=== PATIENT | female | born 1945 | race Caucasian/White ===

== ENCOUNTER 2020-12-30 12:27 | Inpatient (IN) | payer MEDICARE ==
[~2020-12-30] VITALS: Ht 154.9 cm; Wt 65.8 kg
[2020-12-30 13:39] LABS: BASOPHIL 0.2 % (0-2); EOSINOPHIL 0.5 % (0-7); HCT 39.6 % (37.0-47.0); HGB 12.7 g/dl (12.5-16.0); LYMPHOCYTE 11.9 % (15-48); MCH 27.7 pg (25.0-31.0); MCHC 32.1 g/dL (32.0-36.0); MCV 86.3 fL (78.0-100.0); MONOCYTE 7.7 % (0-12); MPV 9.4 fL (6.0-9.5); NEUTROPHIL 79.2 % (41-80); NRBC 0; PLT 257 K/uL (150-400); RBC 4.59 M/uL (4.20-5.40); RDW 13.6 % (11.5-14.0); WBC 6.2 K/uL (4.0-10.5)
[2020-12-30 13:43] LABS: INR 0.91 (0.9-1.2); PROTHROMBIN TIME 11.7 SECONDS (11.8-13.4)
[2020-12-30 13:51] LABS: BILIRUBIN - TOTAL 0.4 mg/dL (0.2-1.0); BUN/CREAT RATIO (CALC) 27.5 RATIO; CREATININE 0.4 mg/dL (0.51-0.95); GLOBULIN (CALCULATION) 4.6 g/dL; POTASSIUM 3.5 mmol/L (3.5-5.1); TOTAL PROTEIN 7.6 g/dL (6.4-8.2)
[2020-12-30 13:56] LABS: PRO-BNP 275 pg/mL (<125)
[2020-12-30] MEDS ORDERED: ASPIRIN EC81 MG PO (22:40)
[2020-12-30] MEDS ORDERED: ATORVASTATIN CA40 MG PO (22:44)
[2020-12-30] MEDS ORDERED: CALAN SR180 MG PO (22:46)
[2020-12-30] MEDS ORDERED: GLIPIZIDE ER10 MG PO (22:47)
[2020-12-30] MEDS ORDERED: HCTZ25 MG PO (22:47)
[2020-12-30] MEDS ORDERED: TRADJENTA5 MG PO (22:49)
[2020-12-30] MEDS ORDERED: SYMBICORT 16010.2 GM PO (22:50)
[2020-12-30] MEDS ORDERED: LISINOPRIL40 MG PO (22:51)
[2020-12-30] MEDS ORDERED: METFORMIN HCL1000 MG PO (22:52)
[2020-12-30] MEDS ORDERED: MAGNESIUM PO (22:54)
[2020-12-30] MEDS ORDERED: COD LIVER OIL1 EACH PO (22:54)
[2020-12-30] MEDS ORDERED: SELENIUM200 MC1 PO (22:55)
[2020-12-30] MEDS ORDERED: CHROMIUM PICO200 MC1 PO (22:56)
[2020-12-31 04:07] LABS: BASOPHIL 0.3 % (0-2); EOSINOPHIL 0 % (0-7); LYMPHOCYTE 9.5 % (15-48); MCH 27.6 pg (25.0-31.0); MCHC 31.6 g/dL (32.0-36.0); MCV 87.4 fL (78.0-100.0); MONOCYTE 3.6 % (0-12); NRBC 0; PLT 213 K/uL (150-400); RBC 4.35 M/uL (4.20-5.40); RDW 13.4 % (11.5-14.0); WBC 3.4 K/uL (4.0-10.5)
[2020-12-31 04:08] LABS: NEUTROPHIL 86.6 % (41-80)
[2020-12-31 04:30] LABS: ALBUMIN 2.7 g/dL (3.4-5.0); BILIRUBIN - TOTAL 0.4 mg/dL (0.2-1.0); CREATININE 0.42 mg/dL (0.51-0.95); GLOBULIN (CALCULATION) 4.3 g/dL; POTASSIUM 3.9 mmol/L (3.5-5.1)
[2020-12-31 10:09] LABS: LACTIC ACID 1.3 mmol/L (0.4-1.9)
[2021-01-01 06:11] LABS: BASOPHIL 0.1 % (0-2); EOSINOPHIL 0 % (0-7); HCT 36.5 % (37.0-47.0); HGB 11.5 g/dl (12.5-16.0); MCH 27.6 pg (25.0-31.0); MCHC 31.5 g/dL (32.0-36.0); MCV 87.5 fL (78.0-100.0); MONOCYTE 8.5 % (0-12); MPV 9.1 fL (6.0-9.5); NEUTROPHIL 81.7 % (41-80); NRBC 0; PLT 281 K/uL (150-400); RBC 4.17 M/uL (4.20-5.40); RDW 13.2 % (11.5-14.0); WBC 6.7 K/uL (4.0-10.5)
[2021-01-01 06:34] LABS: ALBUMIN 2.5 g/dL (3.4-5.0); BILIRUBIN - TOTAL 0.3 mg/dL (0.2-1.0); BUN/CREAT RATIO (CALC) 39.5 RATIO; CREATININE 0.43 mg/dL (0.51-0.95); GLOBULIN (CALCULATION) 4.1 g/dL; TOTAL PROTEIN 6.6 g/dL (6.4-8.2)
[2021-01-02 01:37] LABS: BILIRUBIN NEGATIVE (NEGATIVE); BLOOD NEGATIVE Ery/uL (NEGATIVE); CLARITY CLEAR (CLEAR); COLOR YELLOW (YELLOW); GLUCOSE (U) 3+ mg/dL (NORMAL); LEUKOCYTES NEGATIVE Leu/uL (NEGATIVE); NITRITE NEGATIVE (NEGATIVE); PROTEIN NEGATIVE (NEGATIVE)
[2021-01-02 01:43] LABS: AMORPHOUS URATES CRYSTALS TRACE; BACTERIA TRACE; SQUAMOUS EPITHELIAL CELLS RARE
[2021-01-02 06:58] LABS: BASOPHIL 0.1 % (0-2); EOSINOPHIL 0 % (0-7); HCT 36.4 % (37.0-47.0); HGB 11.7 g/dl (12.5-16.0); LYMPHOCYTE 9.4 % (15-48); MCH 27.9 pg (25.0-31.0); MCHC 32.1 g/dL (32.0-36.0); MCV 86.9 fL (78.0-100.0); MONOCYTE 9.8 % (0-12); MPV 8.7 fL (6.0-9.5); NEUTROPHIL 79.8 % (41-80); NRBC 0; PLT 351 K/uL (150-400); RBC 4.19 M/uL (4.20-5.40); RDW 13.1 % (11.5-14.0); WBC 8.5 K/uL (4.0-10.5)
[2021-01-02 07:25] LABS: ALBUMIN 2.6 g/dL (3.4-5.0); BILIRUBIN - TOTAL 0.4 mg/dL (0.2-1.0); BUN/CREAT RATIO (CALC) 43.6 RATIO; CREATININE 0.39 mg/dL (0.51-0.95); GLOBULIN (CALCULATION) 4.1 g/dL; POTASSIUM 3.8 mmol/L (3.5-5.1); TOTAL PROTEIN 6.7 g/dL (6.4-8.2)
--- NOTE | 2021-01-03 21:04 | NUR ---
REPORT GIVEN TO [facility] . PT BEING TRANSPORTED AT THIS TIME.
[2021-01-05 06:55] LABS: BASOPHIL 0.4 % (0-2); EOSINOPHIL 0.1 % (0-7); HCT 41.3 % (37.0-47.0); HGB 13.3 g/dl (12.5-16.0); LYMPHOCYTE 8.7 % (15-48); MCH 27.9 pg (25.0-31.0); MCHC 32.2 g/dL (32.0-36.0); MCV 86.8 fL (78.0-100.0); MONOCYTE 8.3 % (0-12); MPV 8.8 fL (6.0-9.5); NEUTROPHIL 79.4 % (41-80); NRBC 0; PLT 570 K/uL (150-400); RBC 4.76 M/uL (4.20-5.40); RDW 13.1 % (11.5-14.0); WBC 13.7 K/uL (4.0-10.5)
[2021-01-05 07:14] LABS: BUN/CREAT RATIO (CALC) 42.9 RATIO; CREATININE 0.42 mg/dL (0.51-0.95); POTASSIUM 4.4 mmol/L (3.5-5.1)
--- NOTE | 2021-01-05 13:27 | NUR ---
01/05/21 [employer] scheduled an appointment with Dr. Rodriguez for 01/23 at 3:00. - Please monitor for 02 needs.
[2021-01-07 05:50] LABS: BASOPHIL 0.3 % (0-2); EOSINOPHIL 0 % (0-7); HCT 35.7 % (37.0-47.0); HGB 11.6 g/dl (12.5-16.0); LYMPHOCYTE 9.9 % (15-48); MCH 27.8 pg (25.0-31.0); MCHC 32.5 g/dL (32.0-36.0); MCV 85.4 fL (78.0-100.0); MONOCYTE 8.4 % (0-12); MPV 8.3 fL (6.0-9.5); NEUTROPHIL 76.5 % (41-80); NRBC 0; PLT 515 K/uL (150-400); RBC 4.18 M/uL (4.20-5.40); RDW 13.2 % (11.5-14.0)
[2021-01-07 05:56] LABS: WBC 15.8 K/uL (4.0-10.5)
[2021-01-07 06:18] LABS: BUN/CREAT RATIO (CALC) 45.5 RATIO; CREATININE 0.44 mg/dL (0.51-0.95); POTASSIUM 4.3 mmol/L (3.5-5.1)
[2021-01-07] MEDS ORDERED: VENTOLIN HFA IN18 GM INH (07:54)
[2021-01-07] MEDS ORDERED: ADVAIR HFA 230-28 GM INH (07:54)
[2021-01-07] MEDS ORDERED: AZITHROMYCIN 2250 MG PO (07:54)
[2021-01-07] MEDS ORDERED: DEXAMETHASONE 2M2 MG PO (07:54)
== END 2021-01-07 15:23 | disposition home or self-care (01) | DRG 177 ==
LOC: FER 12:27 → FMS 18:11 → FTCU 18:11 → FMS 01-03 21:22
PROVIDERS: Allergy & Immunology Allergy; Family Medicine; Nurse Practitioner; Physician Assistant; ADMIT Internal Medicine
PROC: 8E0ZXY6 Isolation (ICD-10-PCS; principal; 2020-12-30)
PROC: XW033E5 Introduction of Remdesivir Anti-infective into Peripheral Vein, Percutaneous Approach, New Technology Group 5 (ICD-10-PCS; 2020-12-30)
PROC: XW0DXM6 Introduction of Baricitinib into Mouth and Pharynx, External Approach, New Technology Group 6 (ICD-10-PCS; 2020-12-30)
PROC: 5A0955A Assistance with Respiratory Ventilation, Greater than 96 Consecutive Hours, High Flow/Velocity Cannula (ICD-10-PCS; 2021-01-02)
DX: U07.1 COVID-19 (principal); J12.82 Pneumonia due to coronavirus disease 2019; J96.01 Acute respiratory failure with hypoxia; J45.901 Unspecified asthma with (acute) exacerbation; E11.9 Type 2 diabetes mellitus without complications; I10 Essential (primary) hypertension; F41.9 Anxiety disorder, unspecified; Z79.82 Long term (current) use of aspirin; Z79.84 Long term (current) use of oral hypoglycemic drugs; Z79.51 Long term (current) use of inhaled steroids; Z90.710 Acquired absence of both cervix and uterus; Z98.890 Other specified postprocedural states; Z83.3 Family history of diabetes mellitus; Z82.49 Family history of ischemic heart disease and other diseases of the circulatory system; Z80.9 Family history of malignant neoplasm, unspecified
CPT/HCPCS: 36415; 36600; 71045; 71275; 80048; 80053; 81001; 82803; 82962; 83605; 83880; 84145; 84484; 85025; 85379; 85610; 86140; 87040; 93005; 94010; 94640; 94668; 94760; 94762; 97162; 97166; 97530-GP; 97535; C9399; J1100; J1650; J7040; J7050; J8540; Q9967; U0002